=== PATIENT | female | born 1995 | race African-American/Black ===

== ENCOUNTER 2017-05-05 14:07 | Emergency (ER) | payer SELFPAY | END 2017-05-05 14:44 | disposition home or self-care (01) | LOC: ER 14:07 | DX: M79.1 Myalgia (principal); V43.52XA Car driver injured in collision with other type car in traffic accident, initial encounter; Y93.I9 Activity, other involving external motion; Y92.410 Unspecified street and highway as the place of occurrence of the external cause; Y99.8 Other external cause status | CPT/HCPCS: 99281 ==

== ENCOUNTER 2017-12-18 18:23 | Emergency (ER) | payer OTHER ==
[~2017-12-18] VITALS: Ht 160 cm; Wt 104.3 kg
[2017-12-18 18:57] VITALS: BP 157/92
[2017-12-18] MEDS ORDERED: POLY10DR3 EACHEYE (19:10)
--- NOTE | 2017-12-18 19:10 | PHYS DOC ---
Past Medical History Past Medical History: No Pertinent History Past Surgical History: No Surgical History Alcohol Use: None Drug Use: None Adult General Chief Complaint Chief Complaint: EYE PROBLEMS [facility] Patient is a 22 year old female who presents with right eye itching and redness. She states she awoke today with pink/red conjunctiva and eye discharge. Review of Systems Review of Systems Constitutional: Denies fever or chills [] Eyes: Denies change in visual acuity. right conjunctiva redness and itching. Denies eye pain. [] HENT: Denies nasal congestion or sore throat [] Respiratory: Denies cough or shortness of breath [] Cardiovascular: No additional information not addressed in HPI [] GI: Denies abdominal pain, nausea, vomiting, bloody stools or diarrhea [] : Denies dysuria or hematuria [] Musculoskeletal: Denies back pain or joint pain [] Integument: Denies rash or skin lesions [] Neurologic: Denies headache, focal weakness or sensory changes [] Endocrine: Denies polyuria or polydipsia [] All other systems were reviewed and found to be within normal limits, except as documented in this note. Allergies Allergies Allergies Coded Allergies Type Severity Reaction Last Updated Verified No Known Drug Allergies 05/05/17 No Physical Exam Physical Exam Constitutional: Well developed, well nourished, no acute distress, non-toxic appearance. [] HENT: Normocephalic, atraumatic, bilateral external ears normal, oropharynx moist, no oral exudates, nose normal. [] Eyes: PERRLA, EOMI. Conjunctiva pink/ red with itching and discharge. [] Neck: Normal range of motion, no tenderness, supple, no stridor. [] Cardiovascular:Heart rate regular rhythm, no murmur [] Lungs & Thorax: Bilateral breath sounds clear to auscultation [] Abdomen: Bowel sounds normal, soft, no tenderness, no masses, no pulsatile masses. [] Skin: Warm, dry, no erythema, no rash. [] Back: No tenderness, no CVA tenderness. [] Extremities: No tenderness, no cyanosis, no clubbing, ROM intact, no edema. [] Neurologic: Alert and oriented X 3, normal motor function, normal sensory function, no focal deficits noted. [] Psychologic: Affect normal, judgement normal, mood normal. [] Current Patient Data Vital Signs Vital Signs Date Time Temp Pulse Resp B/P (MAP) Pulse Ox O2 Delivery O2 Flow Rate FiO2 12/18/17 18:57 99.2 124 16 157/92 (113) 98 Room Air 99.2 EKG EKG [] Radiology/Procedures Radiology/Procedures [] Course & Med Decision Making Course & Med Decision Making Left eye conjunctiva redness/pink since this morning with discharge. Patient denies recent illness or being around else that ill or has pink eye. Patient is neurologically intact. Patient denies fever or upper respiratory symptoms. Patient denies any visual changes. Patient will be discharged home with antibiotic drops and to follow up with primary care or her eye doctor. Right, Left, and Bilateral eyes have 20/20 vision. [] Dragon Disclaimer Dragon Disclaimer This electronic medical record was generated, in whole or in part, using a voice recognition dictation system. Departure Departure Impression: Primary Impression: Conjunctivitis Disposition: HOME, SELF-CARE Condition: STABLE Referrals: NO PCP (PCP) Patient Instructions: Conjunctivitis (Viral and Bacterial) Additional Instructions: Follow-up with primary care or her eye doctor. Scripts Polymyxin B Sulf/Trimethoprim (POLYMYXIN B-TMP EYE DROPS) 10 Ml Drops 1 DROP EACHEYE QID for 7 Days, #10 ML Prov: MARGIE MCNALLY PROCUREMENT CONSULTANT 12/18/17 Problem Qualifiers Primary Impression: Conjunctivitis Conjunctivitis type: acute Acute conjunctivitis type: unspecified Laterality: right Qualified Codes: H10.31 - Unspecified acute conjunctivitis , right eye MARGIE MCNALLY APRN Dec 18, 2017 19:10
== END 2017-12-18 19:22 | disposition home or self-care (01) ==
LOC: ER 18:23
DX: H10.31 Unspecified acute conjunctivitis, right eye (principal)
CPT/HCPCS: 99283

== ENCOUNTER 2018-11-16 10:16 | Emergency (ER) | payer OTHER ==
[~2018-11-16 10:16] MED LIST: POLY10DR3 EACHEYE
== END 2018-11-16 10:27 | disposition left against medical advice (07) ==
LOC: ER 10:16
DX: J05.0 Acute obstructive laryngitis [croup] (principal); Z53.21 Procedure and treatment not carried out due to patient leaving prior to being seen by health care provider